=== PATIENT | female | born 1995 | race Caucasian/White ===

== ENCOUNTER 2018-05-06 09:24 | Emergency (ER) | payer OTHER ==
[~2018-05-06] VITALS: Ht 165.1 cm; Wt 60.8 kg
[2018-05-06 09:29] VITALS: Ht 165.1 cm; Wt 60.8 kg
[2018-05-06 09:34] VITALS: BP 112/84
== END 2018-05-06 09:31 | disposition left against medical advice (07) ==
LOC: ED 09:24
DX: Z53.21 Procedure and treatment not carried out due to patient leaving prior to being seen by health care provider (principal)

== ENCOUNTER 2019-05-08 06:17 | Emergency (ER) | payer OTHER ==
[~2019-05-08] VITALS: Ht 162.6 cm; Wt 59.0 kg
[2019-05-08 06:20] VITALS: Ht 162.6 cm; Wt 59.0 kg
[2019-05-08 09:43] VITALS: BP 150/80
== END 2019-05-08 09:43 | disposition home or self-care (01) ==
LOC: ED 06:17
DX: S13.4XXA Sprain of ligaments of cervical spine, initial encounter (principal); S00.33XA Contusion of nose, initial encounter; S00.03XA Contusion of scalp, initial encounter; F31.9 Bipolar disorder, unspecified; Z88.8 Allergy status to other drugs, medicaments and biological substances; W22.8XXA Striking against or struck by other objects, initial encounter; Y93.89 Activity, other specified; Y92.89 Other specified places as the place of occurrence of the external cause; Y99.8 Other external cause status
CPT/HCPCS: Q0092